=== PATIENT | male | born 1985 | race Caucasian/White ===

== ENCOUNTER 2023-06-02 09:04 | Emergency (ER) | payer MEDICAID, SELFPAY ==
[2023-06-02] VITALS (17 sets, daily range): BP systolic 145–166; BP diastolic 58–95; PULSE 78–116; RESP 16–18; TEMP 36.6–37; O2SAT 92–100
[2023-06-02] MEDS: LORazepam 2 MG/ML VIAL IVP (09:23)
[2023-06-02] MEDS: Lactated Ringers 1,000 ML 1000 ML IV ×2 (09:23→11:01)
--- NOTE | 2023-06-02 09:27 | ED.GENADUL_ITS ---
Discharge Plan Disposition Patient Disposition: Home Condition: Stable Discharge Details Clinical Impression: Vomiting and diarrhea, Tachycardia Primary Care Provider: Unknown,Unknown ED Provider: Wendy Ireland Home Meds and New Rx's Prescriptions: New ondansetron 4 mg tablet,disintegrating 4 mg PO Q6H PRN (Reason: nausea and vomiting) Qty: 30 0RF No Action omeprazole magnesium [Prilosec OTC] 20 mg tablet,delayed release (DR/EC) 20 mg PO DAILY Discharge Instructions Instructions: Acute Nausea and Vomiting (ED) HPI General Date/Time Provider Initiated Documentation: 06/02/23 09:09 . Limitations to Documentation: no limitations . Information obtained by: patient . HPI Narrative: 38-year-old gentleman with out known medical history presents for evaluation of vomiting, diarrhea, shaking. He reports the symptoms started this morning. Not associated with fever but EMS reports temp of 99.4. zofran and tylenol given by EMS. He does report burning with urination and pus in his urine that started today. He states that he has had blood in his urine for the last month but the burning just started today. He does report history of kidney stone and history of lithotripsy for this. He denies known sick contacts. Reports that he smokes marijuana. He states that he does not drink every day because he cannot afford it. Last drink was yesterday. Related Data Home Medications Medication Instructions Recorded Confirmed omeprazole magnesium 20 mg 20 mg PO DAILY 06/02/23 06/02/23 tablet,delayed release (Prilosec OTC) ondansetron 4 mg disintegrating 4 mg PO Q6H PRN nausea and 06/02/23 tablet vomiting #30 tabs Previous Rx's Medication Instructions Recorded ondansetron 4 mg disintegrating 4 mg PO Q6H PRN nausea and 06/02/23 tablet vomiting #30 tabs Allergies Allergy/AdvReac Type Severity Reaction Status Date / Time No Known Allergies Allergy Unverified 06/02/23 09:11 General Stated Complaint: Nausea/Vomit/Diar TORRIE: 3 Exam Narrative Exam Narrative: Review of Systems: All systems reviewed & are unremarkable except as noted in HPI and below Well-developed, no acute distress NCAT PERRL, normal conjunctiva Tachycardic, hypertensive Unlabored respiratory effort, clear bilaterally Nondistended abdomen , soft nontender Extremities w/o deformity, no cyanosis, no edema No rashes or lesions. Has some generalized tremor at baseline, no focal deficits, good strength throughout + Anxious Course Vital Signs Vital signs: Vital Signs Temperature 37.0 C 06/02/23 09:07 Pulse 114 H 06/02/23 09:07 Respiratory Rate 18 06/02/23 09:07 Blood Pressure 166/58 H 06/02/23 09:07 Pulse Oximetry 97 06/02/23 09:07 Temperature 37.0 C 06/02/23 09:07 Pulse 114 H 06/02/23 09:07 Respiratory Rate 18 06/02/23 09:07 Blood Pressure 166/58 H 06/02/23 09:07 Blood Pressure Position Sitting 06/02/23 09:07 Pulse Oximetry 97 06/02/23 09:07 Oxygen Delivery Method Room Air 06/02/23 09:07 Oxygen Flow Rate 0 06/02/23 09:07 Pain Level 6 06/02/23 09:07 Medical Decision Making Emergent evaluation of vomiting, diarrhea, tremor. Patient is also endorsing symptoms concerning for possible renal stone versus urinary tract infection versus pyelonephritis. Symptoms and presentation are concerning for possible alcohol withdrawal. Patient does ambiguous about his alcohol use. Will begin resuscitation with IV fluids. Will give Ativan due to my suspicion for alcohol withdrawal. Will check lab work, urinalysis and get CT imaging of the abdomen. 1000 Lab work reviewed. Lactic acid is elevated. Will repeat after fluid resuscitation. Alcohol level negative. Lipase normal. CBC without leukocytosis or significant anemia. CMP without concerning electrolyte derangement. 1130 Urinalysis without any sign of blood or infection. CT imaging is also unremar kable. Final disposition pending repeat lactic acid. Repeat lactic acid is unremarkable. Patient vital signs and tremor have improved. At this time feel his symptoms likely related to some alcohol withdrawal. Patient is transient and does not have any plans to stay in the area however he was provided with resources for the area if he does decide to stay or needs to return to the emergency department. Medical Records Medical records reviewed: Yes I reviewed the patient's medical records. Lab Data Lab results reviewed: Yes I reviewed the patient's lab results. Quality:SDOH Health Related Social Needs: Health related social needs risk of homeless, material hardship, food insecurity, transpo insecurity PFSH All Active Problems (Updated 06/02/23 @ 11:54 by Wendy Ireland MD) Tachycardia (Acute) Vomiting and diarrhea (Acute) Social History Smoking/Tobacco Use Status: Unknown Smoking risk assessment performed?: Yes Alcohol Intake: current Alcohol Intake frequency: a few times a week Drug use: Never Substance use type: does not use Housing: homeless Do you feel safe at home: Yes Do you feel safe in your relationship?: Yes Additional Social history: uses bike for transportation; unhoused
[2023-06-02 09:29] LABS: Lactate 2.4 mmol/L (0.6-1.4)
[2023-06-02 09:30] LABS: Abs Immature Grans 0.07 10^3/uL (0.0-0.06); Absolute Basophil Count 0.06 10^3/uL (0.0-0.2); Absolute Eosinophil Count 0.09 10^3/uL (0.0-0.7); Absolute Lymphocyte Count 1.48 10^3/uL (1.2-3.4); Absolute Monocyte Count 0.47 10^3/uL (0.1-0.8); Basophils % 0.6; Eosinophils % 0.9; HCT 43.7 % (40.0-50.0); Immature Grans % 0.7; Lymphocytes % 14.4; MCH 32.7 pg (27.0-33.0); MCHC 36.6 % (32.0-36.0); MCV 89 fL (80-95); MPV 10.2 fL (8.0-11.0); Monocytes % 4.6; Neutrophils % 78.8; Platelet Count 221 10^3/uL (130-400); RDW-SD 39.2 fL; WBC 10.27 10^3/uL (4.4-10.8)
[2023-06-02 09:52] LABS: ETHANOL BLOOD < 3.0 mg/dL (<10)
[2023-06-02 09:53] LABS: ALT 49 U/L (16-63); AST 39 U/L (15-37); Albumin 4.2 g/dL (3.4-5.0); Alkaline Phosphatase 62 U/L (46-116); Anion Gap 13.1 mmol/L (3-11); BUN 16 mg/dL (7-18); Bilirubin, Total 0.6 mg/dL (0.2-1.0); CO2 26.9 mmol/L (21.0-32.0); Calcium 9.2 mg/dL (8.5-10.1); Chloride 103 mmol/L (98-107); Estimated GFR 100.03 (mL/min/1.73m2); Glucose 153 mg/dL (74-106); Lipase 27 U/L (16-77); Magnesium 1.8 mg/dL (1.8-2.4); Potassium 3.8 mmol/L (3.5-5.1); Sodium 143 mmol/L (136-145); Total Protein 7.7 g/dL (6.4-8.2)
[2023-06-02] MEDS: Omnipaque 350 MG/ML 500 ML BTL-Imaging package 100 ML IJ (10:13)
[2023-06-02] MEDS: Normal Saline - Diluent 50 ML VIAL IJ (10:15)
--- NOTE | 2023-06-02 10:25 | DI.CT_ITS ---
Exam(s) CT ABDOMEN PELVIS W EXAM: CT ABDOMEN PELVIS W CLINICAL HISTORY: abdominal pain. TECHNIQUE: Imaging Protocol: Axial computed tomography images with coronal and sagittal reformatted images were created and reviewed CONTRAST MATERIAL: Intravenous: Omnipaque-350 100cc Oral: None COMPARISON: No exams were available for comparison FINDINGS: VISUALIZED LUNG BASES: No nodules nor pleural effusions evident. ABDOMEN: There is no ascites. LIVER: Liver is somewhat hypodense implying steatosis. There no discrete focal hepatic lesions. No dilated intrahepatic ducts. GALLBLADDER/BILIARY: No obvious gallbladder pathology. CBD is not dilated. PANCREAS: No evidence of pancreatic mass nor dilatation of the pancreatic duct. SPLEEN: Spleen size is upper normal. No splenic lesions. Splenic and portal veins are patent. ADRENALS: There are no significant adrenal masses. KIDNEYS:No cysts evident. No solid renal masses. No calculi nor hydronephrosis.. ABDOMINAL AORTA: Abdominal aorta is not enlarged. LYMPH NODES:There is no retroperitoneal nor paraaortic adenopathy. ABDOMINAL WALL: No evidence of significant anterior abdominal wall nor inguinal hernia. GI: There is no evidence of bowel obstruction, free air, nor abscess. PELVIS: GI: No evidence of appendicitis.No evidence of significant sigmoid diverticular disease. The sigmoid is collapsed. Appearing unremarkable. LYMPH NODES: There is no intrapelvic nor inguinal adenopathy. REPRODUCTIVE: Prostate not enlarged. Seminal vesicles unremarkable. URINARY BLADDER: No calculi nor obvious masses evident OSSEOUS: No fractures and no significant osseous lesions. IMPRESSION: 1. No significant acute findings on this CT scan of abdomen and pelvis Called by myself to ER physician RADIATION DOSE DELIVERED: Total DLP DATA REPOSITORY: All CT scans at this facility are submitted to the National Radiology Data Registry (NRDR) Dose Index Registry (DIR) with the [employer] (ACR). RADIATION OPTIMIZATION: All CT scans at this facility use at least one of these dose optimization te chniques: automated exposure control; mA and/or kV adjustment per patient size (includes targeted exa ms where dose is matched to clinical indication); or iterative reconstruction.
[2023-06-02 11:11] LABS: Bilirubin Negative (Negative); Blood Negative (Negative); Clarity Clear (Clear); Glucose Negative (Negative); Ketones Negative (Negative); Leukocyte Esterase Negative (Negative); Nitrite Negative (Negative); Specific Gravity 1.015 (1.005-1.025); Urobilinogen 0.2 mg/dL (Up to 0.2); pH 6.5 (5-8)
[2023-06-02 11:34] LABS: *AMPHETAMINES SCREEN URINE Negative (Negative); *BARBITURATES SCREEN URINE Negative (Negative); *BENZODIAZEPINES SCREEN URINE Negative (Negative); Cannabinoids THC Positive (Negative); Cocaine Screen,Urine Negative (Negative); METHADONE URINE SCREEN Negative (Negative); OPIATES URINE SCREEN Positive (Negative)
[2023-06-02 11:36] LABS: Tricyclic Antidepressants Negative (Negative)
[2023-06-02 11:49] LABS: Lactate 1.4 mmol/L (0.6-1.4)
== END 2023-06-02 12:29 | disposition home or self-care (01) ==
PROVIDERS: Emergency Provider Emergency Medicine
DX: R11.10 Vomiting, unspecified; R19.7 Diarrhea, unspecified; R00.0 Tachycardia, unspecified; R30.0 Dysuria
CPT/HCPCS: 80053; 80307; 83690; 96361; 96374; 99285; 74177; 80320; 81003; 83605; 83735; 85025; 99284; J2060

== ENCOUNTER 2023-06-05 10:37 | Emergency (ER) | payer MEDICAID, SELFPAY ==
[2023-06-05 10:37] VITALS: BP 163/90; PULSE 98; RESP 14; TEMP 36.9; O2SAT 99
--- NOTE | 2023-06-05 10:44 | ED.GENADUL_ITS ---
Discharge Plan Disposition Patient Disposition: Home Condition: Stable Discharge Details Clinical Impression: Dysuria Primary Care Provider: Unknown,Unknown ED Provider: Bear Sandoval Home Meds and New Rx's Prescriptions: No Action omeprazole magnesium [Prilosec OTC] 20 mg tablet,delayed release (DR/EC) 20 mg PO DAILY ondansetron 4 mg tablet,disintegrating 4 mg PO Q6H PRN (Reason: nausea and vomiting) Qty: 30 0RF Discharge Instructions Instructions: Dysuria (ED) Additional Instructions: You were seen in the emergency department for your dysuria and lower back pain. There is no kidney stone on your CT scan, no evidence for serious infection on any lab work or urine studies today, your biliary tree including the gallbladder liver and pancreas showed no acute abnormalities or fluid collections on ultrasound. I do not know what is causing your dysuria but I could refer you to our urology practice should you wish to see them, you may want to try [id number] Azo to help with any possible mechanical irritation or urethritis. Please return to the ED for any emergent concerns, urinary retention, increasing pain, fever, nausea, body aches. Referrals: [facility] [Provider Group] HPI General Date/Time Provider Initiated Documentation: 06/05/23 10:39 . HPI Narrative: 38 year-old male presents to ED today by EMS with a chief complaint of feels he has a kidney infection or stone, has history of both with onset for over one month, tried to hydrate his way to spontaneous resolution. Quality described as R flank pain radiating around to R lower abdomen, no radiation to nausea/ vomiting, denies overt fever but states he has had chills and sweats, states he is urinating some dark urine with chunks, denies intercourse in years, denies discharge, endorses dysuria. Severity is described as 8/10. Palliating factors include hydration. Provoking factors include nothing specific. Events leading up to the incident/Associated Symptoms: Patient endorses need for lithotripsy in the past and stenting. Patient not anticoagulated. Related Data Home Medications Medication Instructions Recorded Confirmed omeprazole magnesium 20 mg 20 mg PO DAILY 06/02/23 06/05/23 tablet,delayed release (Prilosec OTC) ondansetron 4 mg disintegrating 4 mg PO Q6H PRN nausea and 06/02/23 06/05/23 tablet vomiting #30 tabs Previous Rx's Medication Instructions Recorded ondansetron 4 mg disintegrating 4 mg PO Q6H PRN nausea and 06/02/23 tablet vomiting #30 tabs Allergies Allergy/AdvReac Type Severity Reaction Status Date / Time No Known Allergies Allergy Unverified 06/05/23 10:41 General Stated Complaint: Urinary TORRIE: 3 Review of Systems All systems reviewed & are unremarkable except as noted in HPI and below Exam Narrative Exam Narrative: GENERAL APPEARANCE: Well-nourished, non-toxic, awake and alert, atraumatic, no acute distress. SKIN: Warm, pink, dry, intact, without rashes/lesions/ulcerations. HEAD: Normocephalic, atraumatic, normal hair distribution for gender/age. EYES: Pupils PERRLA, EOMs intact without nystagmus, normal conjunctiva, no exudates on lids/lashes. ENT: Nares patent, no circumoral cyanosis, no facial swelling NECK: Supple, trachea midline, painless cervical ROM. LUNGS/CHEST: Lungs CTA bilaterally- no rhonchi/rales/wheezes diffusely, non- labored respirations, normal A/P diameter, symmetrical expansion, no chest wall deformity HEART (CV/PV): Regular rate and rhythm without murmur, no peripheral edema, no JVD. ABDOMEN: Soft, non-distended, no guarding, R CVA tenderness, RLQ tenderness, no Rovsing's. MSK: Normal ROM, no swelling/deformity to bilateral UEs or LEs, moving all extremities without weakness, no cyanosis, spine midline without tenderness, normal curvature. NEURO: Mental Status AAOx4 - alert to person, place, time, events No facial droop, no forehead involvement. Motor: No focal weakness - strength 5/5 in bilateral UEs and LEs, proximal and distal, symmetric. Sensory: sensation intact to light touch globally. Gait normal: patient ambulated without ataxia into ED room. PSYCH: euthymic, cooperative, pleasant, appropriate speech Course Vital Signs Vital signs: Vital Signs Temperature 36.9 C 06/05/23 10:37 Pulse 98 H 06/05/23 10:37 Respiratory Rate 14 06/05/23 10:37 Blood Pressure 163/90 H 06/05/23 10:37 Pulse Oximetry 99 06/05/23 10:37 Temperature 36.9 C 06/05/23 10:37 Temperature Source Oral 06/05/23 10:37 Pulse 98 H 06/05/23 10:37 Respiratory Rate 14 06/05/23 10:37 Blood Pressure 163/90 H 06/05/23 10:37 Blood Pressure Position Sitting 06/05/23 10:37 Pulse Oximetry 99 06/05/23 10:37 Oxygen Delivery Method Room Air 06/05/23 10:37 Oxygen Flow Rate 0 06/05/23 10:37 Medical Decision Making This dictation utilizes [id number] dictation software and may contain unedited grammatical errors. 38 y/o M presents to ED today with a chief complaint of R flank pain, radiating to R lower abdomen, chills/sweats with history of kidney infections and renal stones, endorses dysuria. Denies chest pain, denies vomiting. Patients' medical history: renal stones. Family and social history: noncontributory. Pertinent exam findings / vital signs include right CVA tenderness, right lower quadrant abdominal tenderness without Rovsing's, nontoxic vitals, benign cardiopulmonary exam, neuro intact. Differential / pathologies of concern include right ureteral stone, pyelonephritis, UTI, less likely appendicitis or acute surgical abdomen. Diagnostic studies of: -CBC, CMP, lactate, lipase, procalcitonin, urinalysis, CT renal without. Add-on Liver Panel due to acute rise in bilirubin. -CBC without leukocytosis -CMP no JACINTO, elevated bilirubin 1.8, LFTs show mildly elevated direct bili at 0.3 -Lactate WNL, procalcitonin neg -UA shows ketonuria, no proteinuria, no significant signs of bacteria or infection -CT shows no renal stones, no hydronephrosis, no acute pathology -US ABD RUQ shows no acute findings Interventions of: -1L IV NS, 0.4mg PO tamsulosin, 1g IV APAP, 15mg IV ketorlac, 4mg IV zofran. ED Course/Assessment/Plan: 38-year-old male presents with some dysuria, seen last Monday with negative workup for UTI, has history of renal stones per patient. Extensive workup performed today with no suspicion for obstructive uropathy versus infectious etiology, I am unsure what is causing his symptoms I offered to refer him to urology services, he is no emergent findings on his laboratory or urine studies or imaging modalities today. Counseled him on trial of Azo for possible mechanical irritation of urethritis without evidence for any infection, he has not had any sexual intercourse in many years I do not suspect any STI pathology. Findings not consistent with obstructive uropathy, infectious etiology. Disposition of dysuria. Patient verbalized understanding of the plan and return to ED criteria and engaged in shared decision making. Medical Records Medical records reviewed: Yes I reviewed the patient's medical records. Imaging Data Radiologic Study: Attestation: I personally reviewed and interpreted this imaging study as follows: Imaging: CT Scan Radiologist's impression: EXAM: CT RENAL COLIC WO CLINICAL HISTORY: R CVA tenderness. TECHNIQUE: Imaging Protocol: Axial computed tomography images with coronal and sagittal reformatted images were created and reviewed. CONTRAST MATERIAL: Noncontrast COMPARISON: CT CT ABDOMEN PELVIS W from 06/02/2023 FINDINGS: ABDOMEN: Lung Bases: Normal where visualized. Liver: Mildly enlarged. Mild hepatic steatosis. No measurable mass. Gallbladder and biliary tract: No radiodense calculus or dilation. Pancreas: Normal density, no calcifications or inflammatory process. Spleen: Normal. Kidneys: Normal size, contour and axis. No radiodense stones or obstructive uropathy. No masses seen. No perinephric stranding. Adrenal glands: No masses seen. Abdominal Aorta: Abdominal portion non-dilated. Soft tissues: Unremarkable. PELVIS: Bladder: Symmetric distention, no gross wall thickening. No evidence of stones.No visible mass. Bowel: No obstruction or bowel wall thickening. Reproductive: Unremarkable. Peritoneal cavity: No ascites, collection or mesenteric inflammatory response. Bones: Unremarkable for age.. IMPRESSION: Unremarkable noncontrast CT scan of the abdomen and pelvis. Radiologic Study #2: Attestation: I personally reviewed and interpreted this imaging study as follows: Imaging: Ultrasound Radiologist's impression: EXAM: US ABDOMEN LIMITED CLINICAL HISTORY: elevated bilirubin, RUQ study TECHNIQUE: Ultrasound abdomen performed using standard protocol. COMPARISON: CT CT RENAL COLIC WO from 06/05/2023 FINDINGS: LIVER: 18 cm in length. Mild hepatic steatosis. No focal liver lesions are seen. GALLBLADDER: No evidence of cholelithiasis. No evidence of wall thickening. No pericholecystic fluid identified. FONSECA'S SIGN: Negative. BILIARY SYSTEM: No intrahepatic or extrahepatic biliary ductal dilation. Right kidney: Normal size. No evidence of renal calculi. No evidence of hydronephrosis. No renal mass or cyst identified. PANCREAS: Normal where visualized. ABDOMINAL AORTA AND IVC: Visualized portions normal caliber. ASCITES: None seen. IMPRESSION: Mildly enlarged liver with mild hepatic steatosis. No biliary or gallbladder abnormality. Lab Data Lab results reviewed: Yes I reviewed the patient's lab results. Labs: Laboratory Tests Range/Units 06/05/23 06/05/23 06/05/23 11:45 11:45 11:45 WBC (4.4-10.8) 10^3/uL 7.42 RBC (4.36-5.78) 10^6/uL 5.24 Hgb (13.5-17.5) g/dL 16.9 Hct (40.0-50.0) % 46.5 MCV (80-95) fL 89 MCH (27.0-33.0) pg 32.3 MCHC (32.0-36.0) % 36.3 H RDW (11.8-14.1) % 12.2 Plt Count (130-400) 10^3/uL 258 MPV (8.0-11.0) fL 10.5 Immature Gran % 0.5 Neutrophils % 76.6 Lymphocytes % 16.2 Monocytes % 5.9 Eosinophils % 0.3 Basophils % 0.5 Nucleated RBC % (0.0-0.3) % 0.0 Absolute Neutrophils (1.2-6.7) 10^3/uL 5.68 Absolute Lymphocytes (1.2-3.4) 10^3/uL 1.20 Absolute Monocytes (0.1-0.8) 10^3/uL 0.44 Absolute Eosinophils (0.0-0.7) 10^3/uL 0.02 Absolute Basophils (0.0-0.2) 10^3/uL 0.04 VBG Lactate (0.6-1.4) mmol/L 0.9 Sodium (136-145) mmol/L 137 Potassium (3.5-5.1) mmol/L 4.3 Chloride (98-107) mmol/L 100 Carbon Dioxide (21.0-32.0) mmol/L 27.6 Anion Gap (3-11) mmol/L 9.4 BUN (7-18) mg/dL 14 Creatinine (0.70-1.30) mg/dL 1.0 Est GFR (CKD-EPI 2020) (mL/min/1.73m2) 100.03 Glucose (74-106) mg/dL 103 Calcium (8.5-10.1) mg/dL 9.8 Total Bilirubin (0.2-1.0) mg/dL 1.8 H Cancelled Conjugated Bilirubin (0.0-0.2) mg/dL 0.3 H Cancelled AST (15-37) U/L 41 H ALT (16-63) U/L Alkaline Phosphatase (46-116) U/L Total Protein (6.4-8.2) g/dL Albumin (3.4-5.0) g/dL Lipase (16-77) U/L Procalcitonin ng/mL Urine Color (Yellow) Urine Clarity (Clear) Urine pH (5-8) Ur Specific [place] (1.005-1.025) Urine Protein (Neg-Trace) mg/dL Urine Ketones (Negative) mg/dL Urine Blood (Negative) Urine Nitrite (Negative) Urine Bilirubin (Negative) Urine Urobilinogen (Up to 0.2) mg/dL Ur Leukocyte Esterase (Negative) Urine Glucose (Negative) mg/dL Range/Units 06/05/23 06/05/23 06/05/23 11:45 11:45 11:45 WBC (4.4-10.8) 10^3/uL RBC (4.36-5.78) 10^6/uL Hgb (13.5-17.5) g/dL Hct (40.0-50.0) % MCV (80-95) fL MCH (27.0-33.0) pg MCHC (32.0-36.0) % RDW (11.8-14.1) % Plt Count (130-400) 10^3/uL MPV (8.0-11.0) fL Immature Gran % Neutrophils % Lymphocytes % Monocytes % Eosinophils % Basophils % Nucleated RBC % (0.0-0.3) % Absolute Neutrophils (1.2-6.7) 10^3/uL Absolute Lymphocytes (1.2-3.4) 10^3/uL Absolute Monocytes (0.1-0.8) 10^3/uL Absolute Eosinophils (0.0-0.7) 10^3/uL Absolute Basophils (0.0-0.2) 10^3/uL VBG Lactate (0.6-1.4) mmol/L Sodium (136-145) mmol/L Potassium (3.5-5.1) mmol/L Chloride (98-107) mmol/L Carbon Dioxide (21.0-32.0) mmol/L Anion Gap (3-11) mmol/L BUN (7-18) mg/dL Creatinine (0.70-1.30) mg/dL Est GFR (CKD-EPI 2020) (mL/min/1.73m2) Glucose (74-106) mg/dL Calcium (8.5-10.1) mg/dL Total Bilirubin (0.2-1.0) mg/dL Conjugated Bilirubin (0.0-0.2) mg/dL AST (15-37) U/L Cancelled ALT (16-63) U/L 67 H Cancelled Alkaline Phosphatase (46-116) U/L 70 Cancelled Total Protein (6.4-8.2) g/dL 8.6 H Albumin (3.4-5.0) g/dL Lipase (16-77) U/L Procalcitonin ng/mL Urine Color (Yellow) Urine Clarity (Clear) Urine pH (5-8) Ur Specific [place] (1.005-1.025) Urine Protein (Neg-Trace) mg/dL Urine Ketones (Negative) mg/dL Urine Blood (Negative) Urine Nitrite (Negative) Urine Bilirubin (Negative) Urine Urobilinogen (Up to 0.2) mg/dL Ur Leukocyte Esterase (Negative) Urine Glucose (Negative) mg/dL Range/Units 06/05/23 06/05/23 06/05/23 11:45 11:45 13:00 WBC (4.4-10.8) 10^3/uL RBC (4.36-5.78) 10^6/uL Hgb (13.5-17.5) g/dL Hct (40.0-50.0) % MCV (80-95) fL MCH (27.0-33.0) pg MCHC (32.0-36.0) % RDW (11.8-14.1) % Plt Count (130-400) 10^3/uL MPV (8.0-11.0) fL Immature Gran % Neutrophils % Lymphocytes % Monocytes % Eosinophils % Basophils % Nucleated RBC % (0.0-0.3) % Absolute Neutrophils (1.2-6.7) 10^3/uL Absolute Lymphocytes (1.2-3.4) 10^3/uL Absolute Monocytes (0.1-0.8) 10^3/uL Absolute Eosinophils (0.0-0.7) 10^3/uL Absolute Basophils (0.0-0.2) 10^3/uL VBG Lactate (0.6-1.4) mmol/L Sodium (136-145) mmol/L Potassium (3.5-5.1) mmol/L Chloride (98-107) mmol/L Carbon Dioxide (21.0-32.0) mmol/L Anion Gap (3-11) mmol/L BUN (7-18) mg/dL Creatinine (0.70-1.30) mg/dL Est GFR (CKD-EPI 2020) (mL/min/1.73m2) Glucose (74-106) mg/dL Calcium (8.5-10.1) mg/dL Total Bilirubin (0.2-1.0) mg/dL Conjugated Bilirubin (0.0-0.2) mg/dL AST (15-37) U/L ALT (16-63) U/L Alkaline Phosphatase (46-116) U/L Total Protein (6.4-8.2) g/dL Cancelled Albumin (3.4-5.0) g/dL 4.6 Cancelled Lipase (16-77) U/L 34 Procalcitonin ng/mL < 0.1 Urine Color (Yellow) Yellow Urine Clarity (Clear) Clear Urine pH (5-8) 7.0 Ur Specific [place] (1.005-1.025) 1.020 Urine Protein (Neg-Trace) mg/dL Negative Urine Ketones (Negative) mg/dL 15 H Urine Blood (Negative) Negative Urine Nitrite (Negative) Negative Urine Bilirubin (Negative) Negative Urine Urobilinogen (Up to 0.2) mg/dL 0.2 Ur Leukocyte Esterase (Negative) Negative Urine Glucose (Negative) mg/dL Negative Quality:SDOH Health Related Social Needs: Health related social needs risk of homeless, material hardship, food insecurity, transpo insecurity PFSH All Active Problems (Updated 06/05/23 @ 14:38 by MARTA Thompson) Dysuria (Acute) Tachycardia (Acute) Vomiting and diarrhea (Acute) Social History Smoking/Tobacco Use Status: Unknown Smoking risk assessment performed?: Yes Alcohol Intake: current Alcohol Intake frequency: a few times a week Drug use: Never Substance use type: does not use Housing: homeless Do you feel safe at home: Yes Do you feel safe in your relationship?: Yes Additional Social history: uses bike for transportation; unhoused
[2023-06-05 11:50] LABS: Lactate 0.9 mmol/L (0.6-1.4)
[2023-06-05 11:51] LABS: Abs Immature Grans 0.04 10^3/uL (0.0-0.06); Absolute Basophil Count 0.04 10^3/uL (0.0-0.2); Absolute Eosinophil Count 0.02 10^3/uL (0.0-0.7); Absolute Monocyte Count 0.44 10^3/uL (0.1-0.8); Absolute Neutrophil Count 5.68 10^3/uL (1.2-6.7); Basophils % 0.5; Eosinophils % 0.3; HCT 46.5 % (40.0-50.0); HGB 16.9 g/dL (13.5-17.5); Immature Grans % 0.5; Lymphocytes % 16.2; MCH 32.3 pg (27.0-33.0); MCHC 36.3 % (32.0-36.0); MCV 89 fL (80-95); MPV 10.5 fL (8.0-11.0); Monocytes % 5.9; Neutrophils % 76.6; Platelet Count 258 10^3/uL (130-400); RBC 5.24 10^6/uL (4.36-5.78); RDW 12.2 % (11.8-14.1); RDW-SD 39.6 fL; WBC 7.42 10^3/uL (4.4-10.8)
[2023-06-05] MEDS: ACETAMINOPHEN 1,000 MG/100 ML BTL 400 MG IVPB (11:58)
[2023-06-05] MEDS: Tamsulosin 0.4 MG CAPCR PO (11:59)
[2023-06-05] MEDS: Ondansetron 4 MG/2 ML VIAL IVP (11:59)
[2023-06-05] MEDS: Ketorolac 15 MG/ML VIAL IVP (11:59)
[2023-06-05] MEDS: Normal Saline 1,000 ML 1000 ML IV (11:59)
[2023-06-05 12:14] LABS: ALT 67 U/L (16-63); AST 41 U/L (15-37); Albumin 4.6 g/dL (3.4-5.0); Alkaline Phosphatase 70 U/L (46-116); Anion Gap 9.4 mmol/L (3-11); BUN 14 mg/dL (7-18); Bilirubin, Total 1.8 mg/dL (0.2-1.0); CO2 27.6 mmol/L (21.0-32.0); Calcium 9.8 mg/dL (8.5-10.1); Chloride 100 mmol/L (98-107); Estimated GFR 100.03 (mL/min/1.73m2); Glucose 103 mg/dL (74-106); Lipase 34 U/L (16-77); Potassium 4.3 mmol/L (3.5-5.1); Sodium 137 mmol/L (136-145); Total Protein 8.6 g/dL (6.4-8.2)
--- NOTE | 2023-06-05 12:16 | DI.CT_ITS ---
Exam(s) CT RENAL COLIC WO EXAM: CT RENAL COLIC WO CLINICAL HISTORY: R CVA tenderness. TECHNIQUE: Imaging Protocol: Axial computed tomography images with coronal and sagittal reformatted images were created and reviewed. CONTRAST MATERIAL: Noncontrast COMPARISON: CT CT ABDOMEN PELVIS W from 06/02/2023 FINDINGS: ABDOMEN: Lung Bases: Normal where visualized. Liver: Mildly enlarged. Mild hepatic steatosis. No measurable mass. Gallbladder and biliary tract: No radiodense calculus or dilation. Pancreas: Normal density, no calcifications or inflammatory process. Spleen: Normal. Kidneys: Normal size, contour and axis. No radiodense stones or obstructive uropathy. No masses seen. No perinephric stranding. Adrenal glands: No masses seen. Abdominal Aorta: Abdominal portion non-dilated. Soft tissues: Unremarkable. PELVIS: Bladder: Symmetric distention, no gross wall thickening. No evidence of stones.No visible mass. Bowel: No obstruction or bowel wall thickening. Reproductive: Unremarkable. Peritoneal cavity: No ascites, collection or mesenteric inflammatory response. Bones: Unremarkable for age.. IMPRESSION: Unremarkable noncontrast CT scan of the abdomen and pelvis. RADIATION DOSE DELIVERED: Total DLP DATA REPOSITORY: All CT scans at this facility are submitted to the National Radiology Data Registry (NRDR) Dose Index Registry (DIR) with the [employer] (ACR). RADIATION OPTIMIZATION: All CT scans at this facility use at least one of these dose optimization te chniques: automated exposure control; mA and/or kV adjustment per patient size (includes targeted exa ms where dose is matched to clinical indication); or iterative reconstruction.
[2023-06-05 12:32] LABS: Procalcitonin < 0.1 ng/mL
[2023-06-05 12:35] LABS: Bilirubin, Direct 0.3 mg/dL (0.0-0.2)
--- NOTE | 2023-06-05 13:00 | DI.US_ITS ---
Exam(s) US ABDOMEN LIMITED EXAM: US ABDOMEN LIMITED CLINICAL HISTORY: elevated bilirubin, RUQ study TECHNIQUE: Ultrasound abdomen performed using standard protocol. COMPARISON: CT CT RENAL COLIC WO from 06/05/2023 FINDINGS: LIVER: 18 cm in length. Mild hepatic steatosis. No focal liver lesions are seen. GALLBLADDER: No evidence of cholelithiasis. No evidence of wall thickening. No pericholecystic fluid identified. FONSECA'S SIGN: Negative. BILIARY SYSTEM: No intrahepatic or extrahepatic biliary ductal dilation. Right kidney: Normal size. No evidence of renal calculi. No evidence of hydronephrosis. No renal mas s or cyst identified. PANCREAS: Normal where visualized. ABDOMINAL AORTA AND IVC: Visualized portions normal caliber. ASCITES: None seen. IMPRESSION: Mildly enlarged liver with mild hepatic steatosis. No biliary or gallbladder abnormality. DATA REPOSITORY:
[2023-06-05 13:09] LABS: Bilirubin Negative (Negative); Blood Negative (Negative); Clarity Clear (Clear); Glucose Negative (Negative); Ketones 15 mg/dL (Negative); Leukocyte Esterase Negative (Negative); Nitrite Negative (Negative); Urobilinogen 0.2 mg/dL (Up to 0.2)
== END 2023-06-05 14:49 | disposition home or self-care (01) ==
PROVIDERS: Emergency Provider Physician Assistant
DX: M54.50 Low back pain, unspecified (principal); R30.0 Dysuria
CPT/HCPCS: 36415; 80053; 80076; 83690; 84145; 96361; 96374; 96375; 99285; 74176; 76705; 81003; 83605; 85025; 99284; J0131; J1885; J2405